=== PATIENT | male | born 1965 | race Caucasian/White ===

== ENCOUNTER 2021-11-24 16:48 | Inpatient (IN) | payer OTHER ==
[~2021-11-24] VITALS: Ht 177.8 cm; Wt 148.1 kg
[2021-11-24 17:55] LABS: HEMOGLOBIN 14.5 gm/dl (14.0-17.5); RED BLOOD COUNT 4.71 M/UL (4.20-5.50); WHITE BLOOD COUNT 6.4 K/UL (4.5-11.0)
[2021-11-24 18:46] LABS: BUN/CREATININE RATIO 19 (0-10)
[2021-11-25] MEDS ORDERED: FLOMAX 0.4 MG0.4 MG PO (03:40)
[2021-11-25] MEDS ORDERED: LISINOPRIL-HCT1 EAC1 PO (03:40)
[2021-11-25] MEDS ORDERED: BUMETANIDE1 MG PO (03:40)
[2021-11-25] MEDS ORDERED: K-TAB ER20 MEQ PO (03:41)
--- NOTE | 2021-11-25 13:48 | NUR ---
REPORT CALLED TO ANDREAS RODRIGUEZ AT THIS TIME PT GOING TO RM [id number]
--- NOTE | 2021-11-25 17:06 | NUR ---
Patient arrived on floor at approximately 1530. Legs and scrotum assessed and found to be edematous as charted. Vitals were stable and call light placed within reach. Patient had no complaints and had all needs met.
--- NOTE | 2021-11-25 20:36 | NUR ---
11/25/2021 @ APPROX. 20:00 - Patient's bp reported by tech to be 70/50. Multiple attempts done to check bp, this reading is the best that could be obtained. Patient is asymptomatic at this time, other vital signs stable. MD Rojo notifed of bp, obtained orders for ICU/PCU transfer and Levophed drip. 11/25/2021 @ 20:20 - Report called to Mireya RODRIGUEZ at this time.
[2021-11-28 03:25] LABS: HEMOGLOBIN 13.8 gm/dl (14.0-17.5); RED BLOOD COUNT 4.66 M/UL (4.20-5.50); WHITE BLOOD COUNT 6.9 K/UL (4.5-11.0)
[2021-11-29 05:16] LABS: BUN/CREATININE RATIO 29 (0-10)
--- NOTE | 2021-11-29 06:10 | NUR ---
PT NOTED TO HAVE 9 BEAT RUN OF NSVT NOTIFIED DR. CRUZ OF PTS RHYTHM CHANGES. PT ALERT AND ORIENTED IN HIS ROOM LYING IN BED. NAD AND DENIES ANY CHEST PAIN. VITALS ARE WNL.
--- NOTE | 2021-11-29 18:38 | NUR ---
1200: PATIENT STATED HE WAS WET, HIS BED WAS SOMEWHAT WET FROM AN UNKNOWN SOURCE. BED WAS CHANGED AND PATIENT WAS GIVEN A BATH. ONLY 10 MINUTES AFTER WE FINISHED, THE PATIENT COMPLAINED THAT THE BED WAS WET AGAIN. THE BED WAS NOT WET. PATIENT STATED THAT IT WAS COMING FROM THE IV. PATIENT WAS MILKING IV. IV WAS NOT LEAKING AND THE BED NOR PATIENT WAS WET. I HAD ANOTHER NURSE CHECK TO ENSURE THE IV WAS WELL AND LEAKING. THE IV WAS FINE. PATIENT CONTIUED TO COMPLAIN. NO SOURCE WAS EVER FOUND AND BED IS STILL NOT WET. HOWEVER PATIENT FEELS OTHERWISE.
[2021-11-30 04:52] LABS: HEMOGLOBIN 13.7 gm/dl (14.0-17.5); RED BLOOD COUNT 4.55 M/UL (4.20-5.50); WHITE BLOOD COUNT 5.5 K/UL (4.5-11.0)
[2021-11-30 05:17] LABS: BUN/CREATININE RATIO 26 (0-10)
[2021-12-01 04:24] LABS: BUN/CREATININE RATIO 23 (0-10)
[2021-12-03 03:30] LABS: BUN/CREATININE RATIO 20 (0-10)
--- NOTE | 2021-12-04 01:26 | NUR ---
PATIENT IS NONCOMPLIANT WITH BLOOD PRESSURE MONITORING. EDUCATED ON THE IMPORTANCE OF MONITORING.
[2021-12-04 10:37] LABS: BUN/CREATININE RATIO 19 (0-10)
[2021-12-05 04:36] LABS: BUN/CREATININE RATIO 22 (0-10)
[2021-12-07 03:56] LABS: HEMOGLOBIN 13.3 gm/dl (14.0-17.5); RED BLOOD COUNT 4.38 M/UL (4.20-5.50); WHITE BLOOD COUNT 6.1 K/UL (4.5-11.0)
[2021-12-07 04:22] LABS: BUN/CREATININE RATIO 25 (0-10)
[2021-12-08 02:59] LABS: HEMOGLOBIN 12.9 gm/dl (14.0-17.5); RED BLOOD COUNT 4.24 M/UL (4.20-5.50); WHITE BLOOD COUNT 7.2 K/UL (4.5-11.0)
[2021-12-08 03:35] LABS: BUN/CREATININE RATIO 29 (0-10)
[2021-12-09 03:09] LABS: HEMOGLOBIN 13.2 gm/dl (14.0-17.5); RED BLOOD COUNT 4.43 M/UL (4.20-5.50); WHITE BLOOD COUNT 5.5 K/UL (4.5-11.0)
[2021-12-09 03:59] LABS: BUN/CREATININE RATIO 27 (0-10)
--- NOTE | 2021-12-09 08:17 | NUR ---
PATIENT O2 SATS DROP TO 78% ON ROOM AIR.
--- NOTE | 2021-12-09 13:29 | NUR ---
PATIENT TO BE DISCHARGED. O2 DELIVERY ON FLOOR PRESENTLY EDUCATING PATIENT ON USE. PATIENT AGREED TO GO HOME BY TAXI.
[2021-12-09] MEDS ORDERED: LASIX80 MG PO (15:07)
[2021-12-09] MEDS ORDERED: METOPROLOL SUCC25 MG PO (15:07)
[2021-12-09] MEDS ORDERED: ELIQUIS 5 MG TAB5 MG PO (15:07)
[2021-12-09] MEDS ORDERED: K-TAB ER20 MEQ PO (15:10)
--- NOTE | 2021-12-09 15:59 | NUR ---
CALLED PATIENT WITH DISCHARGE INSTRUCTIONS AND MEDICATION CHANGES. EXPLAINED IN DETAIL EACH NEW MEDICATION AND ITS USE. INFORM PATIENT HIS MEDICATIONS HAVE BEEN CALLED IN TO HIS PHARMACY. PATIENT VERBALIZED UNDERSTANDING
== END 2021-12-09 14:26 | disposition home or self-care (01) | DRG 291 ==
LOC: ER1 16:48 → CDU 11-25 00:55 → 3 EAST 11-25 00:55 → PROG CARE 11-25 00:55 → 3 EAST 11-25 02:46 → MED SURG 4 11-25 15:38 → PROG CARE 11-25 20:45
PROVIDERS: Emergency Medicine; Internal Medicine; Internal Medicine Cardiovascular Disease; Internal Medicine Nephrology; ADMIT Internal Medicine
PROC: 3E033XZ Introduction of Vasopressor into Peripheral Vein, Percutaneous Approach (ICD-10-PCS; principal; 2021-11-25)
PROC: B24BZZZ Ultrasonography of Heart with Aorta (ICD-10-PCS; 2021-11-25)
DX: I13.0 Hypertensive heart and chronic kidney disease with heart failure and stage 1 through stage 4 chronic kidney disease, or unspecified chronic kidney disease (principal); I50.23 Acute on chronic systolic (congestive) heart failure; Z20.822 Contact with and (suspected) exposure to COVID-19; R57.0 Cardiogenic shock; J96.21 Acute and chronic respiratory failure with hypoxia; N39.0 Urinary tract infection, site not specified; I48.20 Chronic atrial fibrillation, unspecified; N17.9 Acute kidney failure, unspecified; Z68.43 Body mass index [BMI] 50.0-59.9, adult; I11.0 Hypertensive heart disease with heart failure; R31.9 Hematuria, unspecified; I42.8 Other cardiomyopathies; F31.9 Bipolar disorder, unspecified; E78.5 Hyperlipidemia, unspecified; G47.33 Obstructive sleep apnea (adult) (pediatric); E87.5 Hyperkalemia; I48.0 Paroxysmal atrial fibrillation; K21.9 Gastro-esophageal reflux disease without esophagitis; E66.01 Morbid (severe) obesity due to excess calories; K59.09 Other constipation; N40.0 Benign prostatic hyperplasia without lower urinary tract symptoms; F15.10 Other stimulant abuse, uncomplicated; R73.03 Prediabetes; E53.8 Deficiency of other specified B group vitamins; Z79.01 Long term (current) use of anticoagulants; Z87.442 Personal history of urinary calculi; Z88.8 Allergy status to other drugs, medicaments and biological substances; Z88.6 Allergy status to analgesic agent; Z82.49 Family history of ischemic heart disease and other diseases of the circulatory system
CPT/HCPCS: ECHO; 36415; 51702; 71045; 71046; 74018; 80048; 80053; 80076; 81001; 82803; 83735; 83880; 84132; 84439; 84443; 84484; 85025; 85027; 87086; 93005; 93306; 93970; 94640; 94660; 94664; 94760; 96374; 96375; 97116-GP-CQ; 97162; 99285; J0696; J1160; J1205; J1250; J1650; J1940; J2270; J2405; J3475; J7070; P9047; Q0177; U0002

== ENCOUNTER 2021-12-26 15:47 | Inpatient (IN) | payer OTHER ==
[~2021-12-26] VITALS: Ht 177.8 cm; Wt 143.1 kg
[~2021-12-26 15:47] MED LIST: BUMETANIDE1 MG PO; ELIQUIS 5 MG TAB5 MG PO; FLOMAX 0.4 MG0.4 MG PO; K-TAB ER20 MEQ PO; LASIX80 MG PO; LISINOPRIL-HCT1 EAC1 PO; METOPROLOL SUCC25 MG PO
[2021-12-26 17:18] LABS: HEMOGLOBIN 12.8 gm/dl (14.0-17.5); RED BLOOD COUNT 4.16 M/UL (4.20-5.50); WHITE BLOOD COUNT 6.7 K/UL (4.5-11.0)
[2021-12-26 18:00] LABS: BUN/CREATININE RATIO 20 (0-10)
[2021-12-27 05:01] LABS: HEMOGLOBIN 12.3 gm/dl (14.0-17.5); RED BLOOD COUNT 4.04 M/UL (4.20-5.50); WHITE BLOOD COUNT 5.7 K/UL (4.5-11.0)
[2021-12-27 05:16] LABS: BUN/CREATININE RATIO 21 (0-10)
[2021-12-27] MEDS ORDERED: NEURONTIN300 MG PO (10:38)
[2021-12-27] MEDS ORDERED: ASPIRIN EC81 MG PO (10:39)
[2021-12-27] MEDS ORDERED: ZAROXOLYN/DIULO5 MG PO (10:42)
[2021-12-28 02:55] LABS: HEMOGLOBIN 13.2 gm/dl (14.0-17.5); RED BLOOD COUNT 4.43 M/UL (4.20-5.50)
[2021-12-28 02:58] LABS: WHITE BLOOD COUNT 3.9 K/UL (4.5-11.0)
[2021-12-29 03:06] LABS: HEMOGLOBIN 13.5 gm/dl (14.0-17.5); RED BLOOD COUNT 4.49 M/UL (4.20-5.50)
[2021-12-29 03:07] LABS: WHITE BLOOD COUNT 8.1 K/UL (4.5-11.0)
--- NOTE | 2021-12-29 17:45 | NUR ---
PT AGITATED/ANXIOUS. KEEPS PULLING TELE LEADS, PULSE OX, AND BP CUFF OFF.PT SCREAMING CONSTANTLY. NOTIFIED.
[2021-12-30 05:40] LABS: HEMOGLOBIN 12.6 gm/dl (14.0-17.5); RED BLOOD COUNT 4.12 M/UL (4.20-5.50)
[2021-12-30 06:42] LABS: BUN/CREATININE RATIO 33 (0-10)
[2021-12-31 04:03] LABS: HEMOGLOBIN 14.1 gm/dl (14.0-17.5); WHITE BLOOD COUNT 8.5 K/UL (4.5-11.0)
[2021-12-31 04:05] LABS: RED BLOOD COUNT 4.61 M/UL (4.20-5.50)
[2021-12-31 04:24] LABS: BUN/CREATININE RATIO 38 (0-10)
[2022-01-01 04:59] LABS: HEMOGLOBIN 14.5 gm/dl (14.0-17.5); RED BLOOD COUNT 4.72 M/UL (4.20-5.50); WHITE BLOOD COUNT 9.3 K/UL (4.5-11.0)
[2022-01-01 05:18] LABS: BUN/CREATININE RATIO 38 (0-10)
[2022-01-02 04:42] LABS: BUN/CREATININE RATIO 42 (0-10)
[2022-01-03 05:35] LABS: BUN/CREATININE RATIO 42 (0-10)
[2022-01-04 02:41] LABS: HEMOGLOBIN 14.5 gm/dl (14.0-17.5); RED BLOOD COUNT 4.85 M/UL (4.20-5.50); WHITE BLOOD COUNT 7.1 K/UL (4.5-11.0)
[2022-01-04 02:57] LABS: BUN/CREATININE RATIO 44 (0-10)
--- NOTE | 2022-01-04 05:16 | NUR ---
PATIENTS K LO REPLACED PER PROTOCOL AND PLACED ORDERS FOR LAB RECHECK
--- NOTE | 2022-01-04 16:06 | NUR ---
1606- CALLED MD, LEFT MESSAGE WITH MD REGUARDING PT WILL NOT KEEP TELMETRY OR PULSE OX ON. AWAITING CALL BACK.
--- NOTE | 2022-01-04 16:55 | NUR ---
4884- Spoke with Dr. Doc MEJIAING NON COMPLIENCE WITH TELEMETRY AND PULSE OX. STATED TO LEAVE OFF UNTIL PT CALMED DOWN. WILL CONTINUE TO MONITOR.
[2022-01-05 07:17] LABS: HEMOGLOBIN 15.1 gm/dl (14.0-17.5); RED BLOOD COUNT 4.98 M/UL (4.20-5.50); WHITE BLOOD COUNT 7.1 K/UL (4.5-11.0)
[2022-01-05 07:42] LABS: BUN/CREATININE RATIO 40 (0-10)
--- NOTE | 2022-01-05 09:01 | NUR ---
REPLACED PT TELE AND O2 SENSOR BACK ON PT X2 DUE TO PT PULLING AT LEADS AND BEING NONCOMPLIANT. MD AWARE. WILL CONTINUE TO TRY TO KEEP MONITOR ON PT FOR SAFETY. CONTACTING MD FOR NEW ORDER FOR RESTRAINTS AFTER FAILED ATTEMPTS TO KEEP PT SAFE. WCBELLA.
[2022-01-06 06:07] LABS: BUN/CREATININE RATIO 51 (0-10)
[2022-01-06 06:34] LABS: HEMOGLOBIN 16.4 gm/dl (14.0-17.5); RED BLOOD COUNT 5.37 M/UL (4.20-5.50)
[2022-01-06 06:38] LABS: WHITE BLOOD COUNT 9.2 K/UL (4.5-11.0)
[2022-01-07 07:36] LABS: WHITE BLOOD COUNT 11.1 K/UL (4.5-11.0)
[2022-01-07 07:37] LABS: HEMOGLOBIN 14.4 gm/dl (14.0-17.5); RED BLOOD COUNT 4.82 M/UL (4.20-5.50)
[2022-01-07 08:06] LABS: BUN/CREATININE RATIO 43 (0-10)
--- NOTE | 2022-01-07 16:46 | NUR ---
PER MD DR. RUBIN DO NOT REMOVE BILATERAL WRIST RESTRAINTS.
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
[2022-01-08 07:10] LABS: HEMOGLOBIN 15.7 gm/dl (14.0-17.5); RED BLOOD COUNT 5.12 M/UL (4.20-5.50); WHITE BLOOD COUNT 12.8 K/UL (4.5-11.0)
[2022-01-08 07:22] LABS: BUN/CREATININE RATIO 40 (0-10)
[2022-01-09 06:48] LABS: HEMOGLOBIN 14.1 gm/dl (14.0-17.5); RED BLOOD COUNT 4.74 M/UL (4.20-5.50); WHITE BLOOD COUNT 10.4 K/UL (4.5-11.0)
[2022-01-09 06:57] LABS: BUN/CREATININE RATIO 32 (0-10)
[2022-01-10 08:00] LABS: HEMOGLOBIN 14.6 gm/dl (14.0-17.5); RED BLOOD COUNT 4.86 M/UL (4.20-5.50); WHITE BLOOD COUNT 11.8 K/UL (4.5-11.0)
[2022-01-10 08:22] LABS: BUN/CREATININE RATIO 27 (0-10)
--- NOTE | 2022-01-10 08:55 | NUR ---
DISCUSSED PATIENTS CONDITION WITH AT THIS TIME. RECCOMENDED [facility] AT THIS TIME.
--- NOTE | 2022-01-10 13:21 | NUR ---
CALLED REPORT TO MICHAEL ARELLANO IN PCU AT THIS TIME.
[2022-01-11 02:52] LABS: WHITE BLOOD COUNT 9.2 K/UL (4.5-11.0)
[2022-01-11 02:54] LABS: HEMOGLOBIN 12.6 gm/dl (14.0-17.5); RED BLOOD COUNT 4.18 M/UL (4.20-5.50)
[2022-01-11 03:14] LABS: BUN/CREATININE RATIO 29 (0-10)
[2022-01-11 16:28] LABS: BUN/CREATININE RATIO 26 (0-10)
[2022-01-12 13:02] LABS: HEMOGLOBIN 13.3 gm/dl (14.0-17.5); RED BLOOD COUNT 4.41 M/UL (4.20-5.50); WHITE BLOOD COUNT 7.7 K/UL (4.5-11.0)
[2022-01-12 13:44] LABS: BUN/CREATININE RATIO 26 (0-10)
--- NOTE | 2022-01-12 14:18 | NUR ---
01/12/22 1240 ATTEMPTED TO CONTACT [facility]. ANSWER MACHINE PICKED UP, MESSAGE LEFT FOR HIM TO CALL THE [facility].
--- NOTE | 2022-01-12 14:55 | NUR ---
01/12/22 [address], PT DECLINED TO HAVE CT COMPLETED ONCE IN CT. IS AWARE.
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
[2022-01-14] MEDS ORDERED: TAB-A-VITE TA400 MC1 PO (13:11)
[2022-01-14] MEDS ORDERED: XIFAXAN 550 MG550 MG PO (13:11)
[2022-01-14] MEDS ORDERED: FUROSEMIDE40 MG PO (13:11)
[2022-01-14] MEDS ORDERED: IPRAT-ALBUT 0.5-3 ML NEB (13:11)
[2022-01-14] MEDS ORDERED: CARVEDILOL6.25 MG PO (13:11)
[2022-01-14] MEDS ORDERED: LISINOPRIL2.5 MG PO (13:11)
[2022-01-14] MEDS ORDERED: LEVOFLOXACIN750 MG PO (13:34)
--- NOTE | 2022-01-14 17:06 | NUR ---
REPORT CALLED TO [facility].
== END 2022-01-14 23:40 | disposition home health service (06) | DRG 432 ==
LOC: ER1 15:47 → M/S 21:35 → PROG CARE 21:35 → CDU 21:35 → PROG CARE 12-27 22:47 → CCU 12-29 23:27 → M/S 01-03 16:45 → PROG CARE 01-10 13:53 → MED SURG 4 01-14 13:09
PROVIDERS: Internal Medicine; Internal Medicine Critical Care Medicine; Internal Medicine Nephrology; Physician Assistant Medical; Student in an Organized Health Care Education/Training Program; ADMIT Emergency Medicine
PROC: HZ2ZZZZ Detoxification Services for Substance Abuse Treatment (ICD-10-PCS; principal; 2021-12-26)
PROC: 8E0ZXY6 Isolation (ICD-10-PCS; 2021-12-26)
PROC: XW033E5 Introduction of Remdesivir Anti-infective into Peripheral Vein, Percutaneous Approach, New Technology Group 5 (ICD-10-PCS; 2021-12-26)
PROC: 3E0333Z Introduction of Anti-inflammatory into Peripheral Vein, Percutaneous Approach (ICD-10-PCS; 2021-12-26)
PROC: 3E03329 Introduction of Other Anti-infective into Peripheral Vein, Percutaneous Approach (ICD-10-PCS; 2021-12-26)
PROC: 5A09457 Assistance with Respiratory Ventilation, 24-96 Consecutive Hours, Continuous Positive Airway Pressure (ICD-10-PCS; 2021-12-30)
PROC: 5A09357 Assistance with Respiratory Ventilation, Less than 24 Consecutive Hours, Continuous Positive Airway Pressure (ICD-10-PCS; 2022-01-01)
PROC: 5A09357 Assistance with Respiratory Ventilation, Less than 24 Consecutive Hours, Continuous Positive Airway Pressure (ICD-10-PCS; 2022-01-02)
PROC: 5A09357 Assistance with Respiratory Ventilation, Less than 24 Consecutive Hours, Continuous Positive Airway Pressure (ICD-10-PCS; 2022-01-03)
PROC: 5A09357 Assistance with Respiratory Ventilation, Less than 24 Consecutive Hours, Continuous Positive Airway Pressure (ICD-10-PCS; 2022-01-07)
PROC: 5A09357 Assistance with Respiratory Ventilation, Less than 24 Consecutive Hours, Continuous Positive Airway Pressure (ICD-10-PCS; 2022-01-11)
DX: K70.31 Alcoholic cirrhosis of liver with ascites (principal); J96.21 Acute and chronic respiratory failure with hypoxia; J96.22 Acute and chronic respiratory failure with hypercapnia; U07.1 COVID-19; J12.82 Pneumonia due to coronavirus disease 2019; J15.9 Unspecified bacterial pneumonia; I50.43 Acute on chronic combined systolic (congestive) and diastolic (congestive) heart failure; G93.41 Metabolic encephalopathy; I48.20 Chronic atrial fibrillation, unspecified; I42.8 Other cardiomyopathies; E66.2 Morbid (severe) obesity with alveolar hypoventilation; E87.0 Hyperosmolality and hypernatremia; D68.9 Coagulation defect, unspecified; I48.92 Unspecified atrial flutter; N17.9 Acute kidney failure, unspecified; E87.3 Alkalosis; N39.0 Urinary tract infection, site not specified; E72.20 Disorder of urea cycle metabolism, unspecified; D61.818 Other pancytopenia; E44.0 Moderate protein-calorie malnutrition; F15.20 Other stimulant dependence, uncomplicated; F10.231 Alcohol dependence with withdrawal delirium; Z68.42 Body mass index [BMI] 45.0-49.9, adult; E88.09 Other disorders of plasma-protein metabolism, not elsewhere classified; K80.50 Calculus of bile duct without cholangitis or cholecystitis without obstruction; E53.8 Deficiency of other specified B group vitamins; F31.9 Bipolar disorder, unspecified; E78.5 Hyperlipidemia, unspecified; N40.0 Benign prostatic hyperplasia without lower urinary tract symptoms; I11.0 Hypertensive heart disease with heart failure; E87.6 Hypokalemia; D63.8 Anemia in other chronic diseases classified elsewhere; G47.33 Obstructive sleep apnea (adult) (pediatric); E80.6 Other disorders of bilirubin metabolism; E86.0 Dehydration; L97.519 Non-pressure chronic ulcer of other part of right foot with unspecified severity; R53.81 Other malaise; I50.810 Right heart failure, unspecified; Z79.82 Long term (current) use of aspirin; Z82.49 Family history of ischemic heart disease and other diseases of the circulatory system; Z98.890 Other specified postprocedural states; Z87.442 Personal history of urinary calculi; Z79.01 Long term (current) use of anticoagulants; Z79.899 Other long term (current) drug therapy; Z83.3 Family history of diabetes mellitus; Z80.41 Family history of malignant neoplasm of ovary; Z80.3 Family history of malignant neoplasm of breast; Z88.5 Allergy status to narcotic agent; Z88.8 Allergy status to other drugs, medicaments and biological substances; Z99.81 Dependence on supplemental oxygen; Z91.14 Patient's other noncompliance with medication regimen
CPT/HCPCS: 36415; 36600; 70450; 71045; 80048; 80053; 80307; 81001; 82140; 82248; 82436; 82550; 82553; 82803; 83735; 83874; 83880; 83935; 84100; 84132; 84133; 84300; 84484; 85025; 85027; 85610; 86140; 87040; 87086; 93005; 94640; 94660; 94664; 94760; 96365; 96375; 96376; 97162; 97166; 97530; 97530-GP-CQ; 99284; G0378; J0248; J0696; J1100; J1335; J1630; J1940; J2060; J2270; J2405; J3411; J3475; J3480; J7030; J7040; J7050; J7070; Q9967; U0002